=== PATIENT | female | born 1985 | race Caucasian/White ===

== ENCOUNTER 2024-01-16 11:38 | Outpatient (CLI) | payer BC | END 2024-01-16 11:39 | disposition home or self-care (01) | LOC: CSHLAB 11:38 | PROVIDERS: ATTEND Student in an Organized Health Care Education/Training Program | DX: Z01.812 Encounter for preprocedural laboratory examination (principal); N92.0 Excessive and frequent menstruation with regular cycle | CPT/HCPCS: 84703; 85027; 86850; 86900; 86901 ==

== ENCOUNTER 2025-07-06 07:56 | Outpatient (CLI) | payer BC ==
[2025-07-06] MEDS ORDERED: Iopamidol 370 76% 100 ML VIAL ONE (13:42)
== END 2025-07-06 07:57 | disposition home or self-care (01) ==
LOC: CSHCT 07:56
PROVIDERS: ATTEND Surgery
DX: I73.9 Peripheral vascular disease, unspecified (principal); R91.1 Solitary pulmonary nodule
CPT/HCPCS: 75635